=== PATIENT | female | born 1985 | race African-American/Black ===

== ENCOUNTER 2019-09-07 05:52 | Day surgery (SDC) | payer OTHER | END 2019-09-07 21:18 | disposition home or self-care (01) | LOC: CIR.AMB 05:52 → ADM 08:30 → CIR.AMB 08:30 | PROVIDERS: ATTEND Obstetrics & Gynecology | DX: O02.1 Missed abortion (principal) ==

== ENCOUNTER 2020-11-28 13:10 | Inpatient (IN) | payer OTHER ==
[~2020-11-28] VITALS: Ht 149.9 cm; Wt 69.4 kg
[2020-11-28] MEDS ORDERED: PRENATAL CAPLE1 EAC1 PO (13:51)
== END 2020-12-01 09:24 | disposition home or self-care (01) | DRG 833 ==
LOC: OBS/DEL 13:10 → OB/GYN 11-29 09:26 → LDR 11-29 09:26 → OB/GYN 11-29 10:00
PROVIDERS: ADMIT Obstetrics & Gynecology; ATTEND Obstetrics & Gynecology
PROC: 4A1HXFZ Monitoring of Products of Conception, Cardiac Rhythm, External Approach (ICD-10-PCS; principal; 2020-11-29)
PROC: BU46ZZZ Ultrasonography of Uterus (ICD-10-PCS; 2020-11-29)
DX: O47.03 False labor before 37 completed weeks of gestation, third trimester (principal); O30.003 Twin pregnancy, unspecified number of placenta and unspecified number of amniotic sacs, third trimester; Z3A.35 35 weeks gestation of pregnancy

== ENCOUNTER 2020-12-11 11:10 | Inpatient (IN) | payer OTHER ==
[~2020-12-11] VITALS: Ht 152.4 cm; Wt 72.1 kg
[~2020-12-11 11:10] MED LIST: PRENATAL CAPLE1 EAC1 PO
[2020-12-11] MEDS ORDERED: IRON325 MG PO (11:39)
[2020-12-12] MEDS ORDERED: CONCEPT DHA CA1 EACH (13:16)
== END 2020-12-13 11:20 | disposition home or self-care (01) | DRG 807 ==
LOC: LDR 11:10 → OB/GYN 11:10 → LDR 12:43 → OB/GYN 18:12
PROVIDERS: ADMIT Obstetrics & Gynecology; ATTEND Obstetrics & Gynecology
PROC: 10E0XZZ Delivery of Products of Conception, External Approach (ICD-10-PCS; principal; 2020-12-11)
PROC: 0KQM0ZZ Repair Perineum Muscle, Open Approach (ICD-10-PCS; 2020-12-11)
PROC: 4A1HXFZ Monitoring of Products of Conception, Cardiac Rhythm, External Approach (ICD-10-PCS; 2020-12-11)
DX: O13.4 Gestational [pregnancy-induced] hypertension without significant proteinuria, complicating childbirth (principal); O70.1 Second degree perineal laceration during delivery; O14.94 Unspecified pre-eclampsia, complicating childbirth; Z37.0 Single live birth; Z3A.37 37 weeks gestation of pregnancy

== ENCOUNTER 2021-01-23 05:00 | Day surgery (SDC) | payer OTHER ==
[~2021-01-23 05:00] MED LIST changes: +CONCEPT DHA CA1 EACH; +IRON325 MG PO
== END 2021-01-23 19:25 | disposition home or self-care (01) ==
LOC: CIR.AMB 05:00
PROVIDERS: ATTEND Obstetrics & Gynecology
DX: N70.91 Salpingitis, unspecified (principal); Z20.822 Contact with and (suspected) exposure to COVID-19